=== PATIENT | female | born 1930 | race Caucasian/White ===

== ENCOUNTER 2016-08-15 16:21 | Inpatient (IN) | payer MEDICARE, BC ==
[~2016-08-15] VITALS: Ht 154.9 cm; Wt 58.3 kg
[~2016-08-15 16:21] MED LIST: ADVAIR 250/501 DISK INH; ALENDRONATE SOD70 MG PO; ARICEPT10 MG PO; ARTIFICIAL TEAR15 ML EACH EYE; ARTIFICIAL TEAR15 ML RIGHT EYE; BAYER CHEWABLE81 MG PO; BENZONATATE200 MG PO; CELEXA40 MG PO; COLACE100 MG PO; DILAUD1MGAMP IV; DULCOLAX10 MG/SUPP RC; DURAGESIC1 PATCH .1 TRANSDERM; DURAGESIC1 PATCH .4 TRANSDERM; FLORANEX / LACT1 TAB PO; GABAPENTIN100 MG PO; HYDROCODONE-APA1 TAB PO; IPRAT-ALBUT 0.5-3 ML UPD; K-DUR20 MEQ PO; LACTINEX C1 TAB.CHEW PO; LASIX20 MG PO; LINZESS145 MCG PO; LOVENOX30 MG/0.3 SQ; MEGACE 20 MG TA20 MG PO; MELATONIN 3 MG1 TAB PO; MIRALAX17 GM PO; MUCINEX600 MG PO; MYSOLINE 50 MG50 MG PO; NALOXONE HC0.4 MG/M1 PO; NAMENDA10 MG PO; ONDANSETRON4 MG/2 M3 IV; OYST-CAL-5001 TAB PO; POTASSIUM10 MEQ/100 IV; POTASSIUM20 MEQ/15; PROTONIX40 MG PO; SENNA PLUS TA1 UDTAB PO; SENOKOT-S TABLE1 TAB PO; SKELAXIN800 MG PO; SODIUM PHO40 MMOL/25 IV; SYNTHROID50 MCG PO; SYSTANE 0.3-0.4%5 ML EACH EYE; SYSTANE NIGHTT3.5 GM EACH EYE; ULTRAM50 MG PO; UROCIT-K10 MEQ PO; XANAX0.5 MG PO; XANAX1 MG PO; XANAX2 MG PO; XARELTO15 MG PO; XARELTO20 MG PO
--- NOTE | 2016-08-15 16:30 | NUR ---
Patient admitted from [facility]. Apparently patient has been depressed and does not want to get out of bed, but she yells out for attention. She does not want to eat. She has said a few moments after she got here that she is ready for bed. Explained to her that "Here on this unit, we stay up and out of our rooms" Jen Cronin continued conversation. Did receive verbal consents from patient's son Stewart who is the POA. Patient arrived in her own w/c with staff escorting, clothes brought in with her. Patient is not able to ambulate per her son, she has had a left hip repair and a left ankle repair, both from falls. Patient has stated that all she wants to do is lay in the bed, she has no desire or interest to do anything. Patient answered most questions appropriately, but most of the hx was obtained from her son Stewart over the telephone. Patient has no bruises or decub, she has a scar on abdo from hysterectomy, scar on left ankle and scar on left hip otherwise skin intact. Lungs are clear although, she is being treated for breathing difficulties, she had recent pneumonia and uti.
[2016-08-15] MEDS ORDERED: EFFEXOR75 MG PO (17:07)
[2016-08-15] MEDS ORDERED: K-TAB10 MEQ PO (17:11)
[2016-08-15] MEDS ORDERED: LINZESS290 MCG PO (17:12)
[2016-08-15] MEDS ORDERED: MELATONIN 3 MG1 TAB PO (17:13)
[2016-08-15] MEDS ORDERED: NAMENDA5 MG PO (17:15)
[2016-08-15] MEDS ORDERED: NEURONTIN 300300 MG PO (17:17)
[2016-08-15] MEDS ORDERED: GABAPENTIN100 MG PO (17:17)
[2016-08-15] MEDS ORDERED: OS-CAL500 MG PO (17:19)
[2016-08-15] MEDS ORDERED: CARAFATE1 G PO (17:20)
[2016-08-15] MEDS ORDERED: DULCOLAX5 MG PO (17:21)
[2016-08-15] MEDS ORDERED: BIOFREEZE118 ML TOPICAL (17:22)
[2016-08-15] MEDS ORDERED: MAG-OX 400 MG400 MG PO (17:24)
[2016-08-15] MEDS ORDERED: GAS-X180 MG PO (17:30)
[2016-08-15] MEDS ORDERED: SKELAXIN800 MG PO (17:34)
[2016-08-15] MEDS ORDERED: SYNTHROID75 MCG PO (17:37)
[2016-08-15] MEDS ORDERED: VITAMIN B-1000 MCG/M IM (17:39)
[2016-08-15] MEDS ORDERED: VITAMIN D31000 UNI2 PO (17:40)
[2016-08-15] MEDS ORDERED: TRAZODONE HCL50 MG PO (17:48)
[2016-08-15] MEDS ORDERED: BUPROPION XL150 MG PO (17:50)
[2016-08-15] MEDS ORDERED: KLONOPIN1 MG PO (17:51)
[2016-08-15] MEDS ORDERED: KLONOPIN0.5 MG PO (17:53)
[2016-08-15] MEDS ORDERED: FUROSEMIDE20 MG PO (17:55)
[2016-08-15] MEDS ORDERED: SYSTANE 0.3-0.4%5 ML EACH EYE (17:56)
[2016-08-15] MEDS ORDERED: SYSTANE NIGHTT3.5 GM EACH EYE (17:58)
[2016-08-15] MEDS ORDERED: COMBIVENT RESPIM4 GM INH (18:00)
[2016-08-15] MEDS ORDERED: PROLIA INJ 660 MG/M1 IJ (18:01)
[2016-08-15] MEDS ORDERED: ROBITUSSIN AC (10 M1 PO (18:02)
[2016-08-15] MEDS ORDERED: ACETAMINOPHEN500 M1 PO (18:03)
[2016-08-15 18:04] VITALS: BP 122/83; BMI 23.7
[2016-08-15 20:21] LABS: BASOPHILS 0.1 % (0.0-2.0); EOSINOPHILS 0.8 % (0-7); HEMATOCRIT 44.2 % (36.0-48.0); HEMOGLOBIN 13.8 g/dL (12-16); IMMATURE GRANULOCYTES 0.3 % (0-5); LYMPHOCYTES 10.5 % (15-50); MCH 27.9 pg (26.0-34.0); MCHC 31.2 g/dL (31.0-37.0); MCV 89.5 fL (80.0-100.0); NEUTROPHILS 82.3 % (40-80); PLATELET COUNT 195 10x3/uL (130-400); RBC 4.94 10x6/uL (4.00-5.40); RDW 14.4 % (11.5-14.5); WBC 9.5 10x3/uL (4.8-10.8)
[2016-08-15 20:22] VITALS: BP 140/91
[2016-08-15 20:42] LABS: ALBUMIN 2.8 g/dL (3.4-5.0); ANION GAP 9.5 mmol/L (8-16); BILIRUBIN - TOTAL 0.22 mg/dL (0.2-1.3); CALCIUM 8.4 mg/dL (8.5-10.1); CARBON DIOXIDE 34.2 mmol/L (21.0-32.0); CHOL - HDL RATIO 3.2 ratio (2.3-4.1); CREATININE - SERUM 1.3 mg/dL (0.6-1.3); LDL-HDL RATIO 1.9 ratio (1.5-3.5); POTASSIUM - SERUM 3.7 mmol/L (3.5-5.1); PROTEIN - SERUM 6.4 g/dL (6.4-8.2); THYROID STIMULATING HORMONE 2.25 uIU/mL (0.36-3.74)
[2016-08-15 20:49] LABS: HEMOGLOBIN A1C 4.9 % (4.8-6.0)
--- NOTE | 2016-08-15 21:30 | NUR ---
RECEIVED AT NURSES STATION SITTING IN W/C. CALM AND COOPERATIVE WITH CARE. VERY [place]. ASSESSMENT COMPLETED PER FLOW SHEET. COMPLIANT WITH TAKING PM MEDS. CONTINUE POC AND MONITOR FOR SAFETY.
[2016-08-16 08:10] VITALS: BP 112/64
[2016-08-16 11:03] VITALS: Ht 154.9 cm; Wt 58.3 kg
--- NOTE | 2016-08-16 12:22 | NUR ---
B) Patient is awake and she is sitting in her w/c and she can self propel. She is flat in affect, she doesn't want to socialize or interact with peers or participate in groups or activities. She is sad, she has not screamed out today. I) Provide prescribed meds, encourage groups. R) Patient has been compliant with medications and she is up out of the bed, but nonparticiaptory. Dr. Harrison has assessed medications and revised. P) Continue plan of care.
[2016-08-16 19:30] VITALS: BP 141/79
--- NOTE | 2016-08-17 00:36 | NUR ---
B) recieved sitting in a wheelchair in the day room alert and oriented to self calm a cooperative with staff, I) Administered perscribed medications, redirected as needed, R) Medication compliant, demanding at times, P) Continue plan of care, continue to monitor.
[2016-08-17 04:13] LABS: RAPID PLASMA REAGIN Non Reactive (Non Reactive)
--- NOTE | 2016-08-17 07:30 | NUR ---
IN AND OUT CATH PERFORMED TO OBTAIN URINE SPECIMEN. AFTER EXPLAINING PROCEDURE TO PATIENT URINE COLLECTED AND TAKEN TO THE LAB.
[2016-08-17 07:57] LABS: APPEARANCE CLEAR (CLEAR); BILIRUBIN NEGATIVE (NEGATIVE); COLOR YELLOW (YELLOW); GLUCOSE NEGATIVE (NEGATIVE); KETONE NEGATIVE (NEGATIVE); LEUKOCYTE ESTERASE NEGATIVE (NEGATIVE); NITRITE NEGATIVE (NEGATIVE); PROTEIN TRACE mg/dL (NEGATIVE); SPECIFIC GRAVITY 1.015 (1.005-1.020); UROBILINOGEN NORMAL (NORMAL)
[2016-08-17 08:01] LABS: BACTERIA FEW /hpf (NONE SEEN); EPITHELIAL CELLS 0-5 /hpf (0-5); MUCUS <1+ /lpf (NONE SEEN); WHITE CELLS - URINE 0-5 /hpf (0-5)
[2016-08-17 08:11] VITALS: BP 151/70
[2016-08-17 09:18] LABS: FOLATE (FOLIC ACID) - SERUM 2.4 ng/mL (>3.0)
--- NOTE | 2016-08-17 09:59 | PSY ---
PATIENT NAME:JUSTIN LEAL MEDICAL RECORD: [id number] : [birth year] LOCATION:[id number] ADMISSION DATE: 08/15/16 ACCOUNT: [id number] PSYCHIATRIC EVALUATION DATE OF EVALUATION: 08/16/16 Initial Psychiatric Workup IDENTIFYING DATA: This is the first intermediate admission for this 85-year-old white female. HISTORY OF PRESENT ILLNESS: This patient is a resident of [facility]. Historical information was obtained from the chart as well as a telephone conversation with the patient's son Stewart Leal. The patient evidently carries a diagnosis of Alzheimer dementia. At the jail, but the son indicated that he had never been informed of this and is not sure that his mother actually has Alzheimer's. The patient was transferred to [place] due to the fact that she had been showing increasing lassitude, apparent depression and poor oral intake. She had also had episodes of agitation and yelling out "for attention." The patient also had been participating very poorly in therapy. Because of apparent cognitive and affective decline, she was admitted. PAST MEDICAL HISTORY: The patient does have an extensive past medical history. She did suffer hip fracture 2 years ago. Prior to that time, she had been cared for in home with her son and [id number], but subsequent to the injury, she stay in rehabilitation. It was elected to have her placed in a jail. She does have a past history of osteoporosis, gastroesophageal reflux disease, osteoarthritis, chronic constipation, hypothyroidism, B12 deficiency. She also has a past history of a left ankle fracture. MEDICATION: The patient's medication list at the time of admission was extensive and is noted that there were several therapeutic duplication involved in the list. For example, the patient is taking both Aricept and Namenda. She was on 2 different types of narcotic pain medication. She was taking both melatonin and trazodone for sleep. She was taking both Skelaxin and Neurontin. Other ongoing medications included, levothyroxine, Mysoline, Protonix, Effexor, Remeron, Carafate, Dulcolax, vitamin B12 supplements, Klonopin, Combivent inhaler, Prolia injections and acetaminophen. FAMILY HISTORY: Noncontributory. PAST PSYCHIATRIC HISTORY: The patient did have one episode of severe depression and was hospitalized for this a number of years ago. SOCIAL HISTORY: The patient does have a son and zjqavjro-hw-uyh who live here in town. She has no substance abuse issues. She is a . ALLERGIES: INCLUDE PENICILLIN MEDICATIONS AND TOBRAMYCIN. MENTAL STATUS: On exam, the patient is seated in a wheelchair. Evidently, she has not been independently ambulatory for some time. She is somewhat minimally responsive. Mood is dysphoric. Eye contact is poor. Affect very constricted. Speech is quite terse. Content of thought, however, negative for overt psychosis or suicidality. According to staff, the patient at the time of admission was oriented to person and to place. She was able to give details regarding her previous hip fractures as well as other medical information. However, on interview today, the patient states that her son does not live in town (he does). She is unsure as to the date. She has difficulty recalling the events that led up to hospitalization. The patient does realize that she has memory difficulties. DIAGNOSTIC IMPRESSION: AXIS I: Major depressive disorder by history -- possible Alzheimer dementia. AXIS II: No diagnosis. AXIS III: Status post hip and ankle fractures, gastroesophageal reflux disease, osteoarthritis, chronic constipation, hypothyroidism, vitamin B12 deficiency. AXIS IV: Moderate. AXIS V: 36. PLAN: 1. We will undertake medication revision to, in particular avoid complications and also reduce drug-drug interactions that might in confusion. 2. We will get neuropsychological testing. 3. Daily supportive therapy. 4. We will coordinate with family regarding post-hospital treatment. TRANSINT:[id number] Voice Confirmation ID: [id number] DOCUMENT ID: [id number] RENETTA XIE III, MD at 0959 CC: [id number] DICTATION DATE: 08/16/16 1145 GALLERY INTERN: 08/16/16 1224 ADM IN [facility] [address] [place] [address]
--- NOTE | 2016-08-17 12:16 | NUR ---
(B)RECEIVED PATIENT LAYING IN THE BED. ORIENTED TO SELF ONLY AEB THINKING SHE IS "AT [place]" AND RELATED YEAR IS 19WHAT?" AFTER BEING TOLD IT IS 2017. SOCIALLY WITHDRAWN AND DOES NOT INITIATE CONVERSATION. FREQUENTLY SITS WITH EYES CLOSED BUT OPENS THEM WHEN BEING APPROACHED. RELATES REASON FOR HOSPITALIZATION "DOCTOR SAID I WAS TAKING TO [facility]." SCAB AND RED AREA TO LEFT SIDE OF NOISE. (I)ADMINISTER MEDS AND MONITOR COMPLIANCE. REORIENT NEEDED. (R)MED COMPLIANT. POOR REORIENTAION PATIENT APPEARS PASSIVE OR DISINTERESTED. ABILITY TO RETAIN INFORMATION IS IMPAIRED. (P)CONTINUE POC AND MAINTAIN FALL PRECAUTIONS.
--- NOTE | 2016-08-17 14:23 | NUR ---
LATE ENTRY FROM 08/16 PT'S SON MARIAJOSE VISITED THE UNIT. SW DISCUSSED DISEASE PROCESS, MEDICATION CHANGES, AND DISCHARGE PLANNING.
[2016-08-17 19:30] VITALS: BP 122/66
--- NOTE | 2016-08-17 20:44 | NUR ---
B) Patient is awake and alert, she is calling on her call cosme for her medicine right now. Staff had to explain to her that the nurse was getting it ready. Patient is blunted and she is irritable and demanding. I) Provide prescribed meds and redirect to appropriate milieu. R) Patient is compliant with med taking. Patient can not ambulate, but she can stand with assist to transfer. P) Continue plan of care.
[2016-08-18 09:46] VITALS: BP 138/81
--- NOTE | 2016-08-18 15:15 | NUR ---
VISITOR HERE TO SEE PATIENT. INFORMED VISITOR THAT VISITATION DOES NOT START UNTIL 3:30. VISITOR ALSO HAD A VASE OF BAEZ FOR PATIENT. ASKED VISITOR IF THE VASE WAS GLASS AND SHE REALTED THAT IT WAS. TOLD VISITOR PATIENT COULD NOT KEEP BAEZ IN HER ROOM BECAUSE THEY ARE NOT ALLOWED TO HAVE GLASS OBJECTS. VISITOR RELATED SHE ASKED THE ADVANCED ANALYTICS ASSOCIATE AND WAS TOLD IT WOULD BE ALRIGHT. VISITOR APPEARED SURPRISED AND AGITATED AT THE SAME TIME RELATING "WHY IS SHE ON A PSYCH FLOOR. SHE DOES NOT NEED TO BE ON A PSYCH FLOOR." VISITOR HERE VISITING HOWEVER NOT HAPPY WITH THE SITUATION.
--- NOTE | 2016-08-18 15:49 | NUR ---
(B)RECEIVED PATIENT SITTING IN A CHAIR AT THE NURSE'S STATION. ORIENTED TO SELF AND [place] REALTING "I'M HERE IN THIS JOINT IN [place]." ALSO RELATED THE DAY IS SATURDAY. REASON FOR HOSPITALIZATION "TO GET MEDICINE STRAIGHTENED OUT." POOR EYE CONTACT. SOCIALLY WITHDRAWN AND DOES NOT INTERACT WITH PEERS. DOES NOT AMBULATE. IMPATIENT WITH REQUEST. (I)ADMINISTER MEDS AND MONITOR COMPLIANCE. ENCOURAGE TO INTERACT WITH OTHERS. (R)MED COMPLIANT. REMAINS SOCIALLY WITHDRAWN AND ONLY INTERACTS WITH STAFF WHEN APPROACHED. REMAINS IMPATIENT. (P)CONTINUE POC AND MAINTAIN FALL PRECAUTIONS.
--- NOTE | 2016-08-18 18:39 | PN ---
PATIENT:JUSTIN LEAL MEDICAL RECORD: [id number] LOCATION:[facility] ADMISSION DATE: 08/15/16 PROGRESS NOTE DATE OF SERVICE: 08/17/2016 SUBJECTIVE: No new complaint. OBJECTIVE: The patient has exhibited some restlessness about being in the hospital, but is cooperative with staff. Staff report the patient is more alert and conversant today. She is tolerating medication changes without difficulty. On exam, mood is somewhat irritable. Affect is rather brittle. Speech tends to be terse for the most part. Content of thought is negative for overt psychosis. Sensorium is unchanged. ASSESSMENT: No change in diagnosis. PLAN: 1. Continue medication adjustment, revision as indicated. 2. Continue supportive therapy. TRANSINT:[id number] Voice Confirmation ID: [id number] DOCUMENT ID: [id number] RENETTA XIE III, MD at 1839 CC: [id number] DICTATION DATE: 08/17/16 1223 PRINCIPAL JAVA SOFTWARE ENGINEER: 08/17/162053 ADM IN [place] [id number] [place] [address]
[2016-08-18 20:00] VITALS: BP 129/94
--- NOTE | 2016-08-18 21:43 | NUR ---
B) Showered with staff assist this evening, then sat in chair with blanket over her head, talking to staff through her blanket. Quiet, sullen, flat affect. No yelling out. I) Administer medications as ordered, redirect and reorient PRN. R) Oriented to name, compliant with medications given crushed in applesauce. P) Continue to monitor per plan of care.
[2016-08-19 07:41] VITALS: BP 126/75
--- NOTE | 2016-08-19 11:52 | NUR ---
PT IS VERY TIRED THIS MORNING BUT IS ABLE TO ANSWER QUESTIONS. MED COMPLIANT. ORIENTED TO PERSON ONLY. PT REQUIRES FREQUENT REDIRECTION WITH NO EVIDENCE OF RETAINING. NO AGGRESSION OR YELLING OUT. FALL PRECAUTIONS MAINTAINED. WILL CONTINUE TO MONITOR AND CONTINUE WITH PLAN OF CARE. COOPERATIVE WITH CARE.
[2016-08-19 19:30] VITALS: BP 128/79
--- NOTE | 2016-08-19 20:54 | NUR ---
RECEIVED IN DAYROOM. LAYING ON SOFA WITH EYES OPEN. WATCHING TV. CALM AND COOPERATIVE WITH CARE AND ASSESSMENT. NO SCREAMING OUT THIS PM. REDIRECT AND REORIENT NEEDED. PM MEDS GIVEN ORDERED. RESTING QUIETLY ON SOFA WITH EYES OPEN AT THIS TIME. CONTINUE PALN OF CARE
[2016-08-20 07:38] VITALS: BP 122/69
--- NOTE | 2016-08-20 18:20 | NUR ---
Alert and oriented to name only, has no insight to reason for hospitalization. Requires frequent reorientation with no evidence of retaining information. No aggression, no attention seeking behavior noted. Calm and cooperative, attempts socialization with others. Fall precautions in place, chair alarm in place and functioning properly. Continue plan of care.
[2016-08-20 19:58] VITALS: BP 116/75
--- NOTE | 2016-08-20 19:59 | NUR ---
RECEIVED IN DAYROOM. SETTING ON SOFA BY HERSELF. NOT SOCIALIZING. CALM AND COOPERATIVE WITH CARE AND ASSESSMENT. NOT SRCEAMING OUT THIS PM. ENCOURAGE TO EXPRESS NEEDS. CONTINUES TO REST QUIETLY ON SOFA WITH EYES OPEN. CONTINUE PLAN OF CARE
--- NOTE | 2016-08-21 09:38 | NUR ---
Nutrition Follow Up: Chart reviewed. Pt is eating 44% meal avg on a regular diet. Pt is not meeting est nutritional needs. Wt gain of 4# since admit. +BM 08/19/16. Meds noted including Folate, Lasix, Vit B12. No new labs to assess. Pt with poor po intake at this time. Rec continue current diet. Will send Ensure with meals. RD following.
[2016-08-21 10:07] VITALS: BP 129/75
--- NOTE | 2016-08-21 10:39 | PN ---
PATIENT:JUSTIN LEAL MEDICAL RECORD: [id number] LOCATION:[facility] ADMISSION DATE: 08/15/16 PROGRESS NOTE DATE OF SERVICE: 08/20/2016 SUBJECTIVE: No new complaint. OBJECTIVE: Staff note the patient continues to exhibit very manipulative behavior with her son and [id number]. She has to be redirected from time to time. The patient's behavior on the unit has been fairly tractable. She does engage in a lot of attention seeking behavior, but aside from that, has been reasonably compliant. She is tolerating medication without difficulty. On exam, mood irritable. Affect is brittle. Speech tends to be terse. Content of thought focuses on somatic complaints. Sensorium shows no change. ASSESSMENT: Primary diagnosis is Alzheimer dementia with behavioral disturbance, secondary depression. PLAN: 1. Continue current medications. 2. Continue supportive therapy. TRANSINT:[id number] Voice Confirmation ID: [id number] DOCUMENT ID: [id number] RENETTA XIE III, MD at 1039 CC: [id number] DICTATION DATE: 08/20/16 1156 TALLOW REFINER: 08/20/16 1416 ADM IN [facility] [address] [place] [address]
--- NOTE | 2016-08-21 10:45 | NUR ---
Alert and oriented to name and somewhat to place, ck dn cooperative with care, sits in chair rubbing her eyes most of day, no screaming out or attention seeking behavior. Med compliant, fall precautions in place. Continue plan or care.
[2016-08-21 19:39] VITALS: BP 128/78
--- NOTE | 2016-08-21 20:46 | NUR ---
B) Patient is demanding at times, she is rubbing her eyes and they are quite red, eye drops applied. Patient can self propel in a w/c and she is able to stand, but can not ambulate. I) Provide prescribed meds. R) Patient is compliant with meds and asked "When am I going to get my night meds" Explained to her that this is her night meds. P) Continue plan of care.
[2016-08-22 07:40] VITALS: BP 106/64
--- NOTE | 2016-08-22 10:37 | PN ---
PATIENT:JUSTIN LEAL MEDICAL RECORD: [id number] LOCATION:[facility] ADMISSION DATE: 08/15/16 PROGRESS NOTE DATE OF SERVICE: 08/21/2016 SUBJECTIVE: The patient complains of irritation in the right eye. OBJECTIVE: The patient has undergone neuropsychological testing with Dr. Olsen. She scored a 9/30 on the [facility] Mental Status exam indicating a very severe level of impairment. We will have primary care check on the situation with the patient's right eye irritation. On exam, mood is euthymic. Affect is rather reserved. Speech is terse. Content of thought focuses on somatic concerns. Sensorium is unchanged. ASSESSMENT: No change in diagnosis. PLAN: 1. Maintain current medications. 2. Continue supportive therapy. TRANSINT:[id number] Voice Confirmation ID: [id number] DOCUMENT ID: [id number] RENETTA XIE III, MD at 1037 CC: [id number] DICTATION DATE: 08/21/16 1214 CLINICAL DATA ABSTRACTOR: 08/21/16 1249 ADM IN [id number] [place] [address]
[2016-08-22] MEDS ORDERED: FEXOFENADINE HC60 MG PO (11:56)
[2016-08-22] MEDS ORDERED: DIFLUCAN100 MG PO (11:56)
[2016-08-22] MEDS ORDERED: TRAZODONE HCL50 MG PO (11:59)
[2016-08-22] MEDS ORDERED: LEXAPRO10 MG PO (11:59)
[2016-08-22] MEDS ORDERED: FOLIC ACID1 MG PO (12:00)
--- NOTE | 2016-08-22 14:40 | NUR ---
RECEIVED THIS AM SITTING IN WHEELCHAIR.CALM AND COOPERATIVE,COMPLIANT WITH MEDS.MEDS CRUSHED AND TAKEN IN APPLESAUCE.STAYS TO HERSELF,DOESNOT SOCIALIZE WITH PEERS.CAN BE DEMANDING AT TIMES.WILL CONTINUE WITH PLAN OF CARE,MONITOR FOR CHANGES AND INJURY.
--- NOTE | 2016-08-22 20:42 | NUR ---
RECEIVED IN DAYROOM. SETTING IN WHEELCHAIR WITH PEERS AT HER SIDE. NOT SOCIALIZING. CALM NAD COOPERATIVE WITH CARE AND ASSESSMENT. NOT YELLING OUT THIS EVENING. REDIRECT AND REORIENT NEEDED. CONTINUES TO REST IN WHEELCHAIR WITH EYES OPEN. CONTINUE PLAN OF CARE
[2016-08-23 08:05] VITALS: BP 132/80
--- NOTE | 2016-08-23 11:22 | PN ---
PATIENT:JUSTIN LEAL MEDICAL RECORD: [id number] LOCATION:[facility] ADMISSION DATE: 08/15/16 PROGRESS NOTE DATE OF SERVICE: 08/22/2016 SUBJECTIVE: No new complaint. OBJECTIVE: The patient continues to exhibit a fair degree of manipulative behavior regarding various needs. She behaves also on a rather entitled fashion. However, otherwise, there has not been any agitation or combativeness. She is tolerating medication well. On exam, mood is slightly irritable. Affect is brittle. Speech is terse. Content of thought focuses on somatic concerns. Sensorium shows no change. ASSESSMENT: No change in diagnosis. PLAN: 1. We will maintain all current medications. 2. The patient will likely be discharged tomorrow. TRANSINT:[id number] Voice Confirmation ID: [id number] DOCUMENT ID: [id number] RENETTA XIE III, MD at 1122 CC: [id number] DICTATION DATE: 08/22/16 1206 HEEL SEAT TRIMMER: 08/22/16 1740 ADM IN [place] [id number] [place] [id number]
--- NOTE | 2016-08-23 11:24 | NUR ---
(B)SITTING IN A WHEELCHAIR AT THE NURSE'S STATION. ORIENTED TO SELF ONLY. POOR INSIGHT INTO THE REASON FOR HOSPITALIZATION RELATING "THE DOCTOR SENT ME HERE." ALTHOUGH GETS EYE DROPS FOUR TIMES DAILY SITS AND RUBS EYES WITH KLEENEX MAKING THEM EXTREMELY RED AND PUFFY. DEMANDING WITH REQUEST. (I)ADMINISTER MEDS AND MONITOR COMPLIANCE. INSTRUCT ON DISCHARGE PLANS. (R)MED COMPLIANT. INFORMED PATIENT SHE IS GETTING DISCHARGED AND WILL BE PICKED UP AT 1:00. DISCHARGE PAPERWORK SIGNED BY PATIENT. (P)CONTINUE POC AND MAINTAIN FALL PRECAUTIONS.
--- NOTE | 2016-08-23 11:55 | NUR ---
REPORT CALLED TO [facility]. SPOKE WITH LON. IKE
--- NOTE | 2016-08-23 13:16 | NUR ---
DISCHARGED TO [facility] WITH STAFF FROM [facility]IA FACILITY VEHICLE. PAPERWORK FAXED AND COPY SENT WITH FACILITY STAFF. PERSONAL BELONGINGS SENT WITTH PATIENT AND STAFF. CONDITION STABLE AT TIME OF DISCHARGE.
--- NOTE | 2016-08-24 03:47 | DS ---
PATIENT:JUSTIN LEAL :[birth year] MEDICAL RECORD: [id number] DISCHARGE SUMMARY ADMISSION DATE: 08/15/16 DISCHARGE DATE: 08/23/16 DATE OF ADMISSION: 08/15/2016 DATE OF DISCHARGE: 08/23/2016 HISTORY: First Shelter admission for this 85-year-old white female. The patient is a resident of [facility]. The patient has a previous diagnosis of Alzheimer dementia. She had been showing apparent depression and poor oral intake as well as agitation. For further details, please see previously dictated history. COURSE IN THE HOSPITAL: The patient was seen in consultation by Dr. Anderson. Dr. Anderson noted the presence of several ongoing medical problems including osteoporosis, GERD, osteoarthritis, essential tremor, hypothyroidism, and B12 deficiency. The patient was managed fairly conservatively from a psychiatric standpoint. She was taken off of her previous antidepressants and started on Lexapro 10 mg daily, which she should tolerate much better. She was maintained on Trazodone 75 mg at bedtime for insomnia. She was also maintained on Aricept 10 mg at bedtime for her diagnosis of Alzheimer dementia, also maintained on Klonopin 1 mg at bedtime. Nonpsychiatric medications included Lynn, folic acid, Diflucan, fentanyl patch, Xarelto, Micro-K, Lasix, Dulcolax, Combivent, Protonix, Linzess, Synthroid, Carafate, Mysoline, Systane, mag ox, vitamin B12 supplements, and Rayle p.r.n. The patient showed a great deal of somatic focus during the hospitalization, then her agitation resolved well. She was noted to exhibit a very manipulative behavior around her family. She was somewhat attention seeking, but overall stabilized quite nicely. By the time of discharge, the patient was felt to be stable enough to return to the penitentiary environment. FINAL DIAGNOSES: AXIS I: Alzheimer dementia with behavioral disturbance. AXIS II: Cluster B personality traits. AXIS III: Status post hip and ankle fractures in the past, gastroesophageal reflux disease, osteoarthritis, chronic constipation, hypothyroidism, vitamin B12 deficiency. AXIS IV: Moderate. AXIS V: 40. PLAN: 1. The patient is discharged on current medication. 2. Diet and activities as tolerated. 3. Follow up through primary care physician. TRANSINT:[id number] Voice Confirmation ID: [id number] DOCUMENT ID: [id number] DISCHARGE SUMMARY REPORT [id number] JUSTIN LEAL III, RENETTA Segura MD at 0347 CC: [id number] DICTATION DATE: 08/23/16 1203 CHART COMPUTER: 08/23/161950 DIS IN 08/23/16 [place] [id number] [place] [id number]
== END 2016-08-23 13:15 | DRG 57 ==
LOC: D.PSYCH 16:21
PROVIDERS: ADMIT Psychiatry & Neurology Psychiatry
DX: G30.9 Alzheimer's disease, unspecified (principal); F02.81 Dementia in other diseases classified elsewhere, unspecified severity, with behavioral disturbance; K21.9 Gastro-esophageal reflux disease without esophagitis; M19.90 Unspecified osteoarthritis, unspecified site; K59.09 Other constipation; E03.9 Hypothyroidism, unspecified; E53.8 Deficiency of other specified B group vitamins; F41.8 Other specified anxiety disorders; M81.0 Age-related osteoporosis without current pathological fracture; G89.29 Other chronic pain

== ENCOUNTER → 2016-10-05 14:50 | Outpatient (CLI) | payer MEDICARE, BC ==
[2016-08-16 11:03] VITALS: BMI 23.6
[~2016-10-05 14:50] MED LIST changes: +ACETAMINOPHEN500 M1 PO; +BIOFREEZE118 ML TOPICAL; +BUPROPION XL150 MG PO; +CARAFATE1 G PO; +COMBIVENT RESPIM4 GM INH; +DIFLUCAN100 MG PO; +DULCOLAX5 MG PO; +EFFEXOR75 MG PO; +FEXOFENADINE HC60 MG PO; +FOLIC ACID1 MG PO; +FUROSEMIDE20 MG PO; +GAS-X180 MG PO; +K-TAB10 MEQ PO; +KLONOPIN0.5 MG PO; +KLONOPIN1 MG PO; +LEXAPRO10 MG PO; +LINZESS290 MCG PO; +MAG-OX 400 MG400 MG PO; +NAMENDA5 MG PO; +NEURONTIN 300300 MG PO; +OS-CAL500 MG PO; +PROLIA INJ 660 MG/M1 IJ; +ROBITUSSIN AC (10 M1 PO; +SYNTHROID75 MCG PO; +TRAZODONE HCL50 MG PO; +VITAMIN B-1000 MCG/M IM; +VITAMIN D31000 UNI2 PO
== END | disposition home or self-care (01) ==
LOC: D.CT 14:50
DX: M48.56XA Collapsed vertebra, not elsewhere classified, lumbar region, initial encounter for fracture (principal)

== ENCOUNTER 2016-12-05 13:37 | Inpatient (IN) | payer MEDICARE, BC ==
[~2016-12-05] VITALS: Ht 154.9 cm; Wt 64.6 kg
--- NOTE | ~2016-12-05 | CN ---
PATIENT NAME:JUSTIN LEAL MEDICAL RECORD: [id number] : [birth year] LOCATION:[facility] ADMIT DATE: 12/05/16 ACCOUNT: [id number] CONSULTING PHYSICIAN: OSBALDO BENITEZ MD REFERRING PHYSICIAN: ALVARO SHEARER MD DATE OF CONSULTATION: 12/16/2016 Gastrointestinal Consultation DOCUMENTATION CLERK: Olivier Segal DO REFERRING PHYSICIAN: Alvaro Shearer MD HISTORY OF PRESENT ILLNESS: The patient is an 86-year-old white female, who was actually admitted to the hospital with urosepsis, chest pain, shortness of breath. She also has a longstanding history of a grade IV paraesophageal hernia ____ stomach in her chest and compression of the left lung. She had problem with postprandial vomiting and subsequently underwent a what sounds like temporary PEG placement by Dr. Gaitan a few days ago. With PEG placement to help with nutrition period, it was then felt that once she improved from nourishment standpoint, she will undergo a large procedure repair of her paraesophageal hernia. However, over the past 24 hours, she has developed quite a bit of Hemoccult positive, gastric aspirate through her PEG that has been placed to gravity. She had 400 cc of black-tinged material over the past 12 hours and has had some melena as well. Hematocrit has been okay in around 28, and her BUN 26. I was asked to see the patient for a possible upper GI bleed. The patient cannot really give much history. She is partially demented. PAST MEDICAL HISTORY: As above. She also has hypertension, thyroid disease, depression and anxiety. PAST SURGICAL HISTORY: Remarkable for appendectomy, hysterectomy, left hip surgery and left ankle surgery. She is also status post recent PEG placement. ALLERGIES: TOBRAMYCIN AND PENICILLIN. HOME MEDICATIONS: Include Diflucan, Lexapro, Desyrel, folic acid and Xarelto. She is also on Aricept, Duragesic patch, Synthroid, Mysoline, hydrocodone, Protonix, potassium, Linzess, Carafate, Dulcolax, Klonopin, Lasix, Combivent. FAMILY HISTORY: Negative for GI disease. SOCIAL HISTORY: The patient is a nonsmoker, nondrinker. REVIEW OF SYSTEMS: Noncontributory other than in the HPI. PHYSICAL EXAMINATION: GENERAL: Reveals a frail elderly white female, in no acute distress. She is also demented, but does realized she is in the hospital. HEENT: She has a PEG in placed and there is a black-tinged material draining from it. LABORATORY DATA: Reveals a white count of 12,000, hematocrit 27 down from 31 two days ago, platelet count 167,000. BUN is 23 down from 26 yesterday, creatinine 1.0. Electrolytes are normal. CONSULT REPORT [id number] JUSTIN LEAL IMPRESSION: 1. A very mild upper gastrointestinal bleeding, status post recent PEG tube placement and what sounds like a partial gastropexy by Dr. Gaitan few days ago as noted above, of unclear etiology, but is probably more of an issue at the surgical site more than anything else. It does not look like her stomach is emptying despite her recent surgical intervention. Certainly, does not look like she is having any active GI bleed, but more of a very slow oozing of blood. RECOMMENDATION: 1. Agree with Protonix, that was already been started. 2. After discussing this case with her family, Dr. Shearer, Dr. Childs, I do not think an urgent endoscopy is warranted at this time by me. I think she probably needs to have Dr. Gaitan reassess her when he returns, since she might need a redo surgery, and/or upper GI/EGD by him to assess her anatomy now since her partial surgical repair. In the meantime, I would simply follow her hematocrit and transfuse as needed. We will see on an as needed basis. TRANSINT:[id number] Voice Confirmation ID: [id number] DOCUMENT ID: [id number] OSBALDO BENITEZ MD CC: ABRIL CHILDS MD, ALVARO SHEARER MD and OLIVIER SEGAL [id number] DICTATION DATE: 12/16/16 1108 TUBE DRAWER: 12/16/162013 ADM IN [facility] [address] [place] [place] [address]
--- NOTE | ~2016-12-05 | PN ---
PATIENT:JUSTIN NICHOLSON MEDICAL RECORD: [id number] LOCATION:[facility] ADMISSION DATE: 12/05/16 PROGRESS NOTE DATE OF SERVICE: 12/17/2016 Summary of progress notes from December 15, December 16 and December 17. I have had several I have had several lengthy discussions with Mrs. Nicholson's family. Dr. Jones saw the patient in consultation. He felt that she was not having a significant amount of acute upper gastrointestinal bleeding. She has recently undergone an operation by Dr. Gaitan. I am covering for Dr. Gaitan. The patient's condition has continued to decline. I spoke with the family at length and outlined several different options including hospice. They have elected for hospice. They are waiting for one family member to come in from out of state and then they are going to elect for inpatient hospice to begin tomorrow. I have left a message with Dr. Gaitan, who will be returning tomorrow. TRANSINT:[id number] Voice Confirmation ID: [id number] DOCUMENT ID: [id number] ABRIL CHILDS MD CC: [id number] DICTATION DATE: 12/17/161723 CREDIT OFFICER: 12/18/16 0209 ADM IN [facility] [address] [place] [address]
[2016-12-05 14:55] LABS: HEMATOCRIT 47.3 % (36.0-48.0); HEMOGLOBIN 15.7 g/dL (12-16); MCH 28.2 pg (26.0-34.0); MCHC 33.2 g/dL (31.0-37.0); MCV 85.1 fL (80.0-100.0); MEAN PLATELET VOLUME 10.9 fL (7.4-10.4); PLATELET COUNT 242 10x3/uL (130-400); RBC 5.56 10x6/uL (4.00-5.40); WBC 22.8 10x3/uL (4.8-10.8)
[2016-12-05 15:13] LABS: ALBUMIN 3.8 g/dL (3.4-5.0); ANION GAP 19.7 mmol/L (8-16); BILIRUBIN - TOTAL 1.12 mg/dL (0.2-1.3); CALCIUM 10.5 mg/dL (8.5-10.1); CARBON DIOXIDE 28.2 mmol/L (21.0-32.0); CREATININE - SERUM 1.9 mg/dL (0.6-1.3); PROTEIN - SERUM 7.5 g/dL (6.4-8.2)
[2016-12-05 15:16] LABS: POTASSIUM - SERUM 2.9 mmol/L (3.5-5.1)
[2016-12-05 17:07] LABS: LYMPHOCYTES 10 % (15-50); MONOCYTES 6 % (2-11); NEUTROPHILS 84 % (40-80); PLATELET ESTIMATE NORMAL
[2016-12-05 17:22] LABS: APPEARANCE HAZY (CLEAR); BILIRUBIN NEGATIVE (NEGATIVE); COLOR YELLOW (YELLOW); GLUCOSE NEGATIVE (NEGATIVE); KETONE NEGATIVE (NEGATIVE); LEUKOCYTE ESTERASE 2+ (NEGATIVE); NITRITE NEGATIVE (NEGATIVE); PROTEIN 1+ mg/dL (NEGATIVE); UROBILINOGEN NORMAL (NORMAL)
[2016-12-05 17:23] LABS: BACTERIA MANY /hpf (NONE SEEN); EPITHELIAL CELLS 0-5 /hpf (0-5); RED CELLS - URINE 0-5 /hpf (0-5); WHITE CELLS - URINE >50 /hpf (0-5)
[2016-12-05 20:25] VITALS: BP 158/77; BMI 22.7
[2016-12-05 20:30] VITALS: BP 155/77
[2016-12-05 21:00] VITALS: BP 160/78
[2016-12-05 22:00] VITALS: BP 149/83
[2016-12-05 23:00] VITALS: BP 145/71
[2016-12-06] VITALS (25 sets, daily range): BP systolic 95–153; BP diastolic 45–89; Ht 154.9 cm; Wt 64.6 kg
[2016-12-06 04:26] LABS: BASOPHILS 0.1 % (0-2); EOSINOPHILS 0 % (0-7); HEMATOCRIT 43.8 % (36.0-48.0); IMMATURE GRANULOCYTES 0.4 % (0-5); LYMPHOCYTES 4.4 % (15-50); MCH 27.6 pg (26.0-34.0); MCV 86.4 fL (80.0-100.0); MEAN PLATELET VOLUME 10.3 fL (7.4-10.4); MONOCYTES 9.7 % (2-11); NEUTROPHILS 85.4 % (40-80); PLATELET COUNT 214 10x3/uL (130-400); RBC 5.07 10x6/uL (4.00-5.40); RDW 16.5 % (11.5-14.5); WBC 23.1 10x3/uL (4.8-10.8)
[2016-12-06 04:34] LABS: ANION GAP 11.8 mmol/L (8-16); CALCIUM 9.2 mg/dL (8.5-10.1); CREATININE - SERUM 1.9 mg/dL (0.6-1.3)
[2016-12-06 04:37] LABS: POTASSIUM - SERUM 3.8 mmol/L (3.5-5.1)
--- NOTE | 2016-12-06 21:55 | HP ---
PATIENT: JUSTIN LEAL MEDICAL RECORD: [id number] ACCOUNT: [id number] LOCATION:[facility] D.2301 : [birth year] ADMISSION DATE: 12/05/16 HISTORY AND PHYSICAL EXAMINATION REASON FOR ADMISSION: Vomiting with coffee-ground emesis. HISTORY OF PRESENT ILLNESS: The patient is an 85-year-old female with known history of large paraesophageal hernia. She said for the last 3 days, she has been vomiting uncontrollably and then had some coffee-ground vomitus at which point, the sn[facility] sent her to the ED. She denies fever, cough or severe abdominal pain. She said her stools have been normal. She has not noticed any melena. She presented to the ED late last evening appearing acutely ill. CT of her chest showed a large paraesophageal hernia, displacing her lung and heart with fluid within the stomach. She also had grossly infected UTI and is now admitted for possible upper GI bleed and urosepsis. Her baseline creatinine is 1.8. PAST MEDICAL HISTORY: Hospitalized April 2014 for fall with left fractured hip with ORIF. She was hospitalized July 2016 for compression at [facility] unit and chest pain, considered to be noncardiac. History of essential hypertension, osteoporosis with lumbar and thoracic compression fractures, osteoarthritis, hyperlipidemia, hypertension, chronic depression, vitamin D deficiency, chronic renal insufficiency, hypothyroidism, paraesophageal hernia. PAST SURGICAL HISTORY: Had vertebroplasty and cataract surgery. FAMILY HISTORY: Positive for hypertension in her parents. ALLERGIES: PENICILLIN AND TOBRAMYCIN. SOCIAL HISTORY: She has been for 17 years. Lived with son and [id number] up until about a year ago when she went to the sn[facility]. She has been unable to do any meaningful ADLs for several years. REVIEW OF SYSTEMS: GENERAL: The patient has been very fatigued over the last several days. She denies fever. She has chronic difficulty with her vision. HEENT: Poor vision and hearing. Denies any sore throat or acute visual change. RESPIRATORY: Says she coughs intermittently, but has not had any sputum production. CARDIAC: Denies exertional chest pain, claudication, but she is not very active. GENITOURINARY: Has chronic urinary incontinence. No recent dysuria. GASTROINTESTINAL: She has intermittent vomiting and more recently over the last 2 days, she has had nothing down, she states. She noticed some dark vomitus yesterday afternoon, but no melena. MUSCULOSKELETAL: Has chronic severe arthralgia in her thoracic and lumbar spine and hips. She is minimally ambulatory. INTEGUMENT: Denies rash or itching. PSYCHIATRIC: Admits to chronically depressed mood, but no worse than previous. Denies anxiety attacks currently. No hallucinosis. ENDOCRINE: Denies polyuria, polydipsia, heat or cold intolerance. PHYSICAL EXAMINATION: HISTORY AND PHYSICAL [id number] JUSTIN LEAL VITAL SIGNS: Temperature does show ____ degrees Fahrenheit, pulse 100, respirations were 16, blood pressure 140/60. GENERAL: The patient is alert and oriented at this time. Oropharynx shows dry mucous membranes. Eyes were clear with lens implants. Sclerae nonicteric. CHEST: Distant breath sounds without wheeze or rales. She has decreased breath sounds in the left base. HEART: Regular rate. ABDOMEN: Soft, minimally tender suprapubically. No masses felt. Bowel sounds are hyperactive. RECTAL: No stool in the vault. EXTREMITIES: No CC&E. She has a scar on the left hip from previous ORIF. SKIN: Poor turgor. No rash appreciated, no icterus. NEUROLOGIC: Oriented to person, place, and time moving arms and legs symmetrically without deficit noted. LABORATORY DATA: This admission white count is ____, H&H is 15.4 and 47.3 respectively, platelet count 242,000 with left shift. Her sodium was 150 on admission. Potassium 2.9, CO2 of 28, anion gap of 19.7, BUN of 31, creatinine of 1.9, lactic acid was 7 on admission, now 3.3, glucose 174. Liver functions within normal limits. Amylase is 116. UA showed greater than 50 white cells per high power field, many bacteria. Chest x-ray revealed NG tube in place and large hiatal hernia and partial stomach herniation into the left chest. CT of the abdomen and pelvis without contrast showed organoaxial rotation of the stomach and large hiatal hernia taking a significant amount of the left chest and causing some displacement and compression of the heart, left pleural effusion. ASSESSMENT: 1. Urosepsis. 2. Large paraesophageal hernia, symptomatic. 3. Hypernatremia. 4. Hypokalemia. 5. Leukocytosis. 6. Osteoporosis. PLAN: The patient ____ fluid and electrolyte correction. Blood cultures have been obtained as well as urine culture. Placed on IV Rocephin at this point with surgical consult with Dr. Sherman Gaitan. At this time, she is not anemic. If she develops significant anemia, we will have GI consult as well. I talked to her son who wishes her to be a FULL CODE at this time. TRANSINT:[id number] Voice Confirmation ID: [id number] DOCUMENT ID: [id number] ABRAHAM PENN MD at 2155 CC: [id number] DICTATION DATE: 12/06/16 0837 ASTROPHYSICS PROFESSOR: 12/06/16 1010 ADM IN [facility] [address] [place] [address]
[2016-12-07] VITALS (24 sets, daily range): BP systolic 102–137; BP diastolic 50–95
[2016-12-07 04:04] LABS: BASOPHILS 0 % (0-2); EOSINOPHILS 0.8 % (0-7); IMMATURE GRANULOCYTES 0.2 % (0-5); LYMPHOCYTES 10.9 % (15-50); MCH 27.7 pg (26.0-34.0); MCHC 32.2 g/dL (31.0-37.0); MCV 85.9 fL (80.0-100.0); MEAN PLATELET VOLUME 9.9 fL (7.4-10.4); MONOCYTES 10.1 % (2-11); RDW 16.1 % (11.5-14.5)
[2016-12-07 04:15] LABS: HEMATOCRIT 30.4 % (36.0-48.0); HEMOGLOBIN 9.8 g/dL (12-16); PLATELET COUNT 145 10x3/uL (130-400); RBC 3.54 10x6/uL (4.00-5.40); WBC 10.1 10x3/uL (4.8-10.8)
[2016-12-07 04:34] LABS: ANION GAP 8.9 mmol/L (8-16); BILIRUBIN - TOTAL 0.36 mg/dL (0.2-1.3); CALCIUM 7.4 mg/dL (8.5-10.1); CARBON DIOXIDE 28.7 mmol/L (21.0-32.0); POTASSIUM - SERUM 3.6 mmol/L (3.5-5.1)
[2016-12-07 04:39] LABS: ALBUMIN 2.3 g/dL (3.4-5.0); CREATININE - SERUM 1.4 mg/dL (0.6-1.3); PROTEIN - SERUM 5.2 g/dL (6.4-8.2)
[2016-12-08] VITALS (24 sets, daily range): BP systolic 98–159; BP diastolic 6–95
[2016-12-08 04:23] LABS: BASOPHILS 0.1 % (0-2); EOSINOPHILS 1.9 % (0-7); HEMATOCRIT 34.3 % (36.0-48.0); IMMATURE GRANULOCYTES 0.3 % (0-5); LYMPHOCYTES 16.2 % (15-50); MCH 27.6 pg (26.0-34.0); MCHC 32.1 g/dL (31.0-37.0); MCV 86.2 fL (80.0-100.0); MONOCYTES 11.8 % (2-11); NEUTROPHILS 69.7 % (40-80); PLATELET COUNT 148 10x3/uL (130-400); RBC 3.98 10x6/uL (4.00-5.40); RDW 15.6 % (11.5-14.5); WBC 6.7 10x3/uL (4.8-10.8)
[2016-12-08 04:31] LABS: CALCIUM 7.7 mg/dL (8.5-10.1); CARBON DIOXIDE 25.6 mmol/L (21.0-32.0); CREATININE - SERUM 1.2 mg/dL (0.6-1.3); POTASSIUM - SERUM 3.6 mmol/L (3.5-5.1)
[2016-12-08 06:52] LABS: T4 THYROXIN - FREE 1.15 ng/dL (0.76-1.46); THYROID STIMULATING HORMONE 3.62 uIU/mL (0.36-3.74)
[2016-12-09] VITALS (24 sets, daily range): BP systolic 108–178; BP diastolic 54–100
[2016-12-09 04:08] LABS: BASOPHILS 0.2 % (0-2); EOSINOPHILS 2.1 % (0-7); HEMATOCRIT 36.2 % (36.0-48.0); HEMOGLOBIN 11.9 g/dL (12-16); IMMATURE GRANULOCYTES 0.2 % (0-5); MCH 27.9 pg (26.0-34.0); MCHC 32.9 g/dL (31.0-37.0); MCV 84.8 fL (80.0-100.0); MEAN PLATELET VOLUME 9.7 fL (7.4-10.4); MONOCYTES 11.1 % (2-11); NEUTROPHILS 70.4 % (40-80); PLATELET COUNT 155 10x3/uL (130-400); RBC 4.27 10x6/uL (4.00-5.40); RDW 15.3 % (11.5-14.5); WBC 5.8 10x3/uL (4.8-10.8)
[2016-12-09 04:18] LABS: ANION GAP 10.8 mmol/L (8-16); CALCIUM 7.9 mg/dL (8.5-10.1); CARBON DIOXIDE 26.4 mmol/L (21.0-32.0); CREATININE - SERUM 0.9 mg/dL (0.6-1.3)
[2016-12-09 04:19] LABS: POTASSIUM - SERUM 4.2 mmol/L (3.5-5.1)
[2016-12-09 23:10] LABS: APPEARANCE CLEAR (CLEAR); BILIRUBIN NEGATIVE (NEGATIVE); COLOR STRAW (YELLOW); GLUCOSE NEGATIVE (NEGATIVE); KETONE NEGATIVE (NEGATIVE); LEUKOCYTE ESTERASE NEGATIVE (NEGATIVE); NITRITE NEGATIVE (NEGATIVE); PROTEIN NEGATIVE (NEGATIVE); UROBILINOGEN NORMAL (NORMAL)
[2016-12-10] VITALS (20 sets, daily range): BP systolic 100–153; BP diastolic 45–97
[2016-12-11] VITALS (17 sets, daily range): BP systolic 87–154; BP diastolic 68–97
[2016-12-11 04:58] LABS: BASOPHILS 0.1 % (0-2); EOSINOPHILS 1.1 % (0-7); HEMATOCRIT 34.6 % (36.0-48.0); IMMATURE GRANULOCYTES 0.5 % (0-5); LYMPHOCYTES 7.7 % (15-50); MCH 27.8 pg (26.0-34.0); MCHC 31.8 g/dL (31.0-37.0); MCV 87.4 fL (80.0-100.0); MEAN PLATELET VOLUME 10.4 fL (7.4-10.4); MONOCYTES 14.1 % (2-11); NEUTROPHILS 76.5 % (40-80); PLATELET COUNT 148 10x3/uL (130-400); RBC 3.96 10x6/uL (4.00-5.40); RDW 15.7 % (11.5-14.5); WBC 12.4 10x3/uL (4.8-10.8)
[2016-12-11 07:19] LABS: ANION GAP 12.7 mmol/L (8-16); CALCIUM 7.5 mg/dL (8.5-10.1); CARBON DIOXIDE 21.9 mmol/L (21.0-32.0); POTASSIUM - SERUM 4.6 mmol/L (3.5-5.1)
--- NOTE | 2016-12-11 08:09 | OP ---
PATIENT NAME: JUSTIN LEAL MEDICAL RECORD: [id number] :[birth year] LOCATION:[facility] D.2301 ADMISSION DATE:12/05/16 SURGEON: WOODROW GUERRERO MD DATE OF OPERATION: 12/10/2016 SURGEON: Woodrow Guerrero MD. PREOPERATIVE DIAGNOSES: 1. Grade IV paraesophageal hernia obstructing. 2. Dysphagia. 3. Chronic protein malnutrition. POSTOPERATIVE DIAGNOSES: 1. Grade IV paraesophageal hernia obstructing. 2. Dysphagia. 3. Chronic protein malnutrition. PROCEDURE PERFORMED: 1. Laparoscopic reduction of paraesophageal hernia. 2. Laparoscopic gastropexy. 3. Laparoscopic gastric feeding tube placement. 4. Insertion of left subclavian central venous catheter. ANESTHESIA: General. COMPLICATIONS: None. SPECIMENS: None. Case was contaminated. OPERATIVE COURSE: After consent was obtained, the patient was taken to the operating room and placed in supine position on the operating table. Next, general anesthesia was given via endotracheal intubation. After timeout was performed to confirm the correct patient and procedure, the abdomen was prepped and draped in typical sterile fashion. Local anesthetic was injected just above the umbilicus. A stab incision was made with 11-blade scalpel. Using a 5-mm bladeless optical trocar, the abdomen was entered under direct laparoscopic vision. Adequate pneumoperitoneum was achieved. The abdominal cavity was inspected. No evidence of bowel injury. No evidence of bleeding. The patient was then placed in the steep reverse Trendelenburg position. The remaining trocars were placed after the administration of local anesthetic, an 11-mm trocar and 5-mm trocar into the right lateral quadrant, 5-mm trocar in the left lateral quadrant, Josh retractor in the subxiphoid position. The left lobe of the liver was grasped and retracted exposing the GE junction, there was a large hiatal hernia measuring 12 cm in height, 8cm in width. The entire stomach was herniated into the left pleural cavity, the stomach was reduced. Once the stomach was reduced, some tension the greater curvature of the stomach was sewn to the peritoneum and posterior abdominal wall with 2-0 Stratafix suture. Once the greater curvature was pexy'd to the abdominal wall, restoring normal appearing gastric anatomy. At this time, the vast majority of the stomach was within the abdominal cavity. The hiatal hernia in this patient is likely unfixable given her comorbidities and age. At this time, it was decided with the gastropexy in placed and reduction of the volvulus of the stomach, to place a laparoscopic gastric feeding tube. In a healed gastropexy fashion, a OPERATIVE REPORT [id number] JUSTIN LEAL gastrotomy was made using the Harmonic scalpel. The gastrotomy was bluntly dissected. A stab incision was made in the left upper quadrant. A gastric feeding tube was placed through the abdominal wall through the gastrotomy. The gastrotomy was closed around the G-tube using 0 silk suture. Two additional ____ silk sutures were placed superiorly and inferiorly to the feeding tube. They were delivered through the anterior abdominal wall using a Jordan-Nikos suture passer. The stomach was then again pexy'd to the anterior abdominal wall with 0 silk suture. The bumper was visualized to be firmly against the gastric wall. At this time, the abdominal cavity was inspected. There was no evidence of bowel injury. No evidence of bleeding. Next, all additional instruments were removed. All remaining trocars removed. The skin incisions were closed with 4-0 Monocryl, Mastisol and Steri-Strips. The G-tube was secured and abdominal binder was placed. At the end of the case, all needle and instrument counts were correct. Prior to closure of and under direct laparoscopic vision, the Josh liver retractor was removed. At the end of the case, all needle and instrument counts were correct. No complications occurred. The patient was extubated and transferred to the PACU in stable condition. TRANSINT:[id number] Voice Confirmation ID: [id number] DOCUMENT ID: [id number] WOODROW GUERRERO MD at 0809 CC: [id number] DICTATION DATE: 12/10/16 1606 EXAM PROCTOR: 12/11/16 0134 ADM IN [facility] [id number] [place] [address]
[2016-12-12] VITALS (7 sets, daily range): BP systolic 84–166; BP diastolic 42–97
[2016-12-12 04:41] LABS: BASOPHILS 0.1 % (0-2); EOSINOPHILS 0.8 % (0-7); HEMATOCRIT 38.2 % (36.0-48.0); HEMOGLOBIN 12.5 g/dL (12-16); IMMATURE GRANULOCYTES 0.4 % (0-5); LYMPHOCYTES 7.7 % (15-50); MCH 27.5 pg (26.0-34.0); MCHC 32.7 g/dL (31.0-37.0); MEAN PLATELET VOLUME 10.3 fL (7.4-10.4); MONOCYTES 11.9 % (2-11); NEUTROPHILS 79.1 % (40-80); PLATELET COUNT 156 10x3/uL (130-400); RBC 4.54 10x6/uL (4.00-5.40); RDW 15.7 % (11.5-14.5); WBC 14.2 10x3/uL (4.8-10.8)
[2016-12-12 04:47] LABS: MCV 84.1 fL (80.0-100.0)
[2016-12-12 05:05] LABS: CALCIUM 8.1 mg/dL (8.5-10.1); CARBON DIOXIDE 23.1 mmol/L (21.0-32.0); CREATININE - SERUM 1.1 mg/dL (0.6-1.3); POTASSIUM - SERUM 4.1 mmol/L (3.5-5.1)
[2016-12-13] VITALS (10 sets, daily range): BP systolic 122–158; BP diastolic 79–90
[2016-12-13 04:11] LABS: BASOPHILS 0.1 % (0-2); EOSINOPHILS 0.5 % (0-7); HEMATOCRIT 34.6 % (36.0-48.0); HEMOGLOBIN 11.3 g/dL (12-16); IMMATURE GRANULOCYTES 0.3 % (0-5); LYMPHOCYTES 6.1 % (15-50); MCH 27.6 pg (26.0-34.0); MCHC 32.7 g/dL (31.0-37.0); MCV 84.4 fL (80.0-100.0); MEAN PLATELET VOLUME 10.6 fL (7.4-10.4); MONOCYTES 11.5 % (2-11); NEUTROPHILS 81.5 % (40-80); PLATELET COUNT 157 10x3/uL (130-400); RDW 15.8 % (11.5-14.5); WBC 14.8 10x3/uL (4.8-10.8)
[2016-12-13 04:25] LABS: ANION GAP 10.5 mmol/L (8-16); CARBON DIOXIDE 26.8 mmol/L (21.0-32.0); CREATININE - SERUM 0.9 mg/dL (0.6-1.3); POTASSIUM - SERUM 4.3 mmol/L (3.5-5.1)
[2016-12-14] VITALS: BP 137/78
[2016-12-14 04:00] VITALS: BP 142/70
[2016-12-14 04:31] LABS: BASOPHILS 0.1 % (0-2); EOSINOPHILS 0.9 % (0-7); HEMATOCRIT 30.8 % (36.0-48.0); IMMATURE GRANULOCYTES 0.5 % (0-5); LYMPHOCYTES 9.1 % (15-50); MCH 27.6 pg (26.0-34.0); MCHC 32.5 g/dL (31.0-37.0); MCV 85.1 fL (80.0-100.0); MEAN PLATELET VOLUME 10.5 fL (7.4-10.4); MONOCYTES 12.9 % (2-11); NEUTROPHILS 76.5 % (40-80); PLATELET COUNT 146 10x3/uL (130-400); RBC 3.62 10x6/uL (4.00-5.40); RDW 16.1 % (11.5-14.5); WBC 12.4 10x3/uL (4.8-10.8)
[2016-12-14 04:50] LABS: ANION GAP 10.5 mmol/L (8-16); CALCIUM 7.9 mg/dL (8.5-10.1); CARBON DIOXIDE 28.1 mmol/L (21.0-32.0); CREATININE - SERUM 0.9 mg/dL (0.6-1.3); MAGNESIUM - SERUM 2.2 mg/dL (1.8-2.4); PHOSPHOROUS 2.7 mg/dL (2.5-4.9); POTASSIUM - SERUM 4.6 mmol/L (3.5-5.1)
[2016-12-14 08:13] VITALS: BP 121/61
[2016-12-14 11:58] VITALS: BP 123/68
[2016-12-14 16:10] VITALS: BP 127/68
[2016-12-14 20:00] VITALS: BP 113/60
[2016-12-15] VITALS: BP 110/61
[2016-12-15 03:07] LABS: APPEARANCE CLEAR (CLEAR); BILIRUBIN NEGATIVE (NEGATIVE); COLOR YELLOW (YELLOW); EPITHELIAL CELLS RARE /hpf (0-5); GLUCOSE NEGATIVE (NEGATIVE); KETONE NEGATIVE (NEGATIVE); LEUKOCYTE ESTERASE NEGATIVE (NEGATIVE); NITRITE NEGATIVE (NEGATIVE); PROTEIN TRACE mg/dL (NEGATIVE); SPECIFIC GRAVITY 1.005 (1.005-1.020); UROBILINOGEN NORMAL (NORMAL); WHITE CELLS - URINE RARE /hpf (0-5)
[2016-12-15 04:00] VITALS: BP 128/71
[2016-12-15 07:02] LABS: BASOPHILS 0.2 % (0-2); EOSINOPHILS 0.9 % (0-7); HEMATOCRIT 29.6 % (36.0-48.0); HEMOGLOBIN 9.6 g/dL (12-16); IMMATURE GRANULOCYTES 0.8 % (0-5); LYMPHOCYTES 7.6 % (15-50); MCH 27.8 pg (26.0-34.0); MCHC 32.4 g/dL (31.0-37.0); MCV 85.8 fL (80.0-100.0); MEAN PLATELET VOLUME 10.2 fL (7.4-10.4); MONOCYTES 13.3 % (2-11); NEUTROPHILS 77.2 % (40-80); PLATELET COUNT 154 10x3/uL (130-400); RBC 3.45 10x6/uL (4.00-5.40); RDW 16.1 % (11.5-14.5); WBC 11.4 10x3/uL (4.8-10.8)
[2016-12-15 07:10] LABS: ANION GAP 10.5 mmol/L (8-16); CALCIUM 7.8 mg/dL (8.5-10.1); CARBON DIOXIDE 26.9 mmol/L (21.0-32.0); CREATININE - SERUM 1.1 mg/dL (0.6-1.3); POTASSIUM - SERUM 4.4 mmol/L (3.5-5.1)
[2016-12-15 08:14] VITALS: BP 113/66
[2016-12-15 12:05] VITALS: BP 114/54
[2016-12-15 15:57] VITALS: BP 116/65
[2016-12-15 16:12] LABS: HEMATOCRIT 27.9 % (36.0-48.0); HEMOGLOBIN 9.1 g/dL (12-16)
[2016-12-15 20:00] VITALS: BP 116/57
[2016-12-15 20:05] LABS: MAGNESIUM - SERUM 2.2 mg/dL (1.8-2.4); PRE-ALBUMIN 13.6 mg/dL (18.0-35.7)
[2016-12-15 20:06] LABS: TROPONIN-I 0.093 ng/mL (0.000-0.060)
[2016-12-16] VITALS: BP 120/59
[2016-12-16 04:00] VITALS: BP 126/67
[2016-12-16 04:52] LABS: BASOPHILS 0.2 % (0-2); EOSINOPHILS 0.7 % (0-7); HEMATOCRIT 27.4 % (36.0-48.0); IMMATURE GRANULOCYTES 2.1 % (0-5); MCHC 32.8 g/dL (31.0-37.0); MCV 85.4 fL (80.0-100.0); MEAN PLATELET VOLUME 9.7 fL (7.4-10.4); MONOCYTES 10.8 % (2-11); NEUTROPHILS 79.2 % (40-80); PLATELET COUNT 167 10x3/uL (130-400); RBC 3.21 10x6/uL (4.00-5.40); RDW 16.1 % (11.5-14.5); WBC 12.9 10x3/uL (4.8-10.8)
[2016-12-16 05:02] LABS: CALCIUM 7.8 mg/dL (8.5-10.1); CARBON DIOXIDE 27.3 mmol/L (21.0-32.0); POTASSIUM - SERUM 4.3 mmol/L (3.5-5.1)
[2016-12-16 09:29] VITALS: BP 135/59
[2016-12-16 12:46] VITALS: BP 132/59
[2016-12-16 16:29] VITALS: BP 125/54
[2016-12-16 19:40] VITALS: BP 123/59
[2016-12-17 06:15] LABS: BASOPHILS 0.2 % (0-2); EOSINOPHILS 0.7 % (0-7); HEMOGLOBIN 8.5 g/dL (12-16); IMMATURE GRANULOCYTES 3.2 % (0-5); LYMPHOCYTES 8.8 % (15-50); MCH 28.1 pg (26.0-34.0); MCHC 32.7 g/dL (31.0-37.0); MCV 85.8 fL (80.0-100.0); MEAN PLATELET VOLUME 9.3 fL (7.4-10.4); MONOCYTES 11.1 % (2-11); PLATELET COUNT 184 10x3/uL (130-400); RBC 3.03 10x6/uL (4.00-5.40); WBC 10.7 10x3/uL (4.8-10.8)
[2016-12-17 06:20] VITALS: BP 128/60
[2016-12-17 06:35] LABS: ANION GAP 10.2 mmol/L (8-16); CALCIUM 7.8 mg/dL (8.5-10.1); CARBON DIOXIDE 27.3 mmol/L (21.0-32.0); CREATININE - SERUM 0.9 mg/dL (0.6-1.3); POTASSIUM - SERUM 3.5 mmol/L (3.5-5.1)
[2016-12-17 08:40] VITALS: BP 132/57
[2016-12-17 12:44] VITALS: BP 134/68
[2016-12-17 17:24] VITALS: BP 125/62
[2016-12-17 20:00] VITALS: BP 123/59
[2016-12-18 04:00] VITALS: BP 128/54
[2016-12-18 07:54] VITALS: BP 128/55
[2016-12-18 12:03] VITALS: BP 133/61
[2016-12-18 16:00] VITALS: BP 127/61
[2016-12-18 20:00] VITALS: BP 139/75
[2016-12-19 08:06] VITALS: BP 122/51
== END 2016-12-19 11:52 | disposition hospice, home (50) | DRG 853 ==
LOC: D.ER 13:37 → D.MS 18:50 → D.ICU 18:50 → D.MS 12-13 13:58
PROVIDERS: Family Medicine; Nurse Practitioner Acute Care; Surgery; ADMIT Family Medicine
PROC: 0T9B70Z Drainage of Bladder with Drainage Device, Via Natural or Artificial Opening (ICD-10-PCS; 2016-12-09)
PROC: 02HV33Z Insertion of Infusion Device into Superior Vena Cava, Percutaneous Approach (ICD-10-PCS; 2016-12-10)
PROC: 0BQS4ZZ (ICD-10-PCS; principal; 2016-12-10 11:15)
PROC: 0DQ64ZZ Repair Stomach, Percutaneous Endoscopic Approach (ICD-10-PCS; 2016-12-10 11:15)
PROC: 0DH63UZ Insertion of Feeding Device into Stomach, Percutaneous Approach (ICD-10-PCS; 2016-12-10 11:15)
DX: A41.9 Sepsis, unspecified organism (principal); E43 Unspecified severe protein-calorie malnutrition; K44.0 Diaphragmatic hernia with obstruction, without gangrene; F33.9 Major depressive disorder, recurrent, unspecified; N39.0 Urinary tract infection, site not specified; E87.0 Hyperosmolality and hypernatremia; Z66 Do not resuscitate; D64.9 Anemia, unspecified; K21.9 Gastro-esophageal reflux disease without esophagitis; E03.9 Hypothyroidism, unspecified; M81.0 Age-related osteoporosis without current pathological fracture; G30.9 Alzheimer's disease, unspecified; F02.80 Dementia in other diseases classified elsewhere, unspecified severity, without behavioral disturbance, psychotic disturbance, mood disturbance, and anxiety; E87.6 Hypokalemia; E78.5 Hyperlipidemia, unspecified; B96.20 Unspecified Escherichia coli [E. coli] as the cause of diseases classified elsewhere; I12.9 Hypertensive chronic kidney disease with stage 1 through stage 4 chronic kidney disease, or unspecified chronic kidney disease; N18.9 Chronic kidney disease, unspecified; Z68.22 Body mass index [BMI] 22.0-22.9, adult